=== PATIENT | male | born 1960 | race Caucasian/White ===

== ENCOUNTER → 2019-02-12 | Outpatient (CLI) | payer OTHER ==
[~2019-02-12] MED LIST: CETI10CA5 PO; ESOM20CA31 PO
== END | disposition home or self-care (01) ==
LOC: RAH 10:42
PROVIDERS: ATTEND Internal Medicine Critical Care Medicine
DX: M17.12 Unilateral primary osteoarthritis, left knee (principal)
CPT/HCPCS: 73562

== ENCOUNTER → 2019-03-06 | Outpatient (CLI) | payer OTHER | END | disposition home or self-care (01) | LOC: RAH 08:40 | PROVIDERS: ATTEND Internal Medicine Gastroenterology | DX: K44.9 Diaphragmatic hernia without obstruction or gangrene (principal); K21.9 Gastro-esophageal reflux disease without esophagitis; R11.0 Nausea | CPT/HCPCS: 74240 ==

== ENCOUNTER → 2023-03-28 | Outpatient (CLI) | payer OTHER ==
[~2023-03-28] MED LIST changes: +AMOX-426 PO; +BACL10TA PO; +DULO60CA64 PO; +FLUT1BLS11 IH; +GABA300C PO; +LACT10SO95 PO; +LEVO750T68 PO; +LOSA50TA64 PO; +MAGN240P PO; +MIRT-22 PO; +MONT-39 PO; +POLY17PO4 PO; +PRAM1TAB3 PO; +ROSU20TA73 PO; +TAMS-1 PO
== END | disposition home or self-care (01) ==
LOC: RAH 15:38
PROVIDERS: ATTEND Internal Medicine Critical Care Medicine
DX: R91.8 Other nonspecific abnormal finding of lung field (principal); J44.9 Chronic obstructive pulmonary disease, unspecified; K44.9 Diaphragmatic hernia without obstruction or gangrene; K82.8 Other specified diseases of gallbladder; M47.815 Spondylosis without myelopathy or radiculopathy, thoracolumbar region; Z98.84 Bariatric surgery status
CPT/HCPCS: 71250

== ENCOUNTER 2024-11-14 06:30 | Inpatient (IN) | payer OTHER ==
[2024-11-12 10:18] VITALS: BP 107/59; PULSE 55; RESP 17; TEMP 97.3
[2024-11-12 10:18] LABS: BASOPHILS # (AUTO) 0.02 K/uL (0.00-0.20); BASOPHILS % (AUTO) 0.3 % (0.0-5.0); EOSINOPHILS # (AUTO) 0.06 K/uL (0.00-0.70); HEMATOCRIT 44.1 % (42-54); IMMATURE GRANULOCYTE ABSOLUTE 0.03 K/uL (0-1); LYMPHOCYTES # (AUTO) 1.1 K/uL (1.0-4.8); LYMPHOCYTES % (AUTO) 17.6 % (21.0-51.0); MEAN CORPUSCULAR HEMOGLOBIN 29.9 pg (27.0-33.0); MEAN CORPUSCULAR HGB CONC 31.5 g/dL (32.0-36.0); MEAN CORPUSCULAR VOLUME 94.8 fL (79-99); MONOCYTES # (AUTO) 0.3 K/uL (0.1-1.0); NEUTROPHILS # (AUTO) 4.7 K/uL (1.8-7.7); NEUTROPHILS % (AUTO) 75.6 % (40.0-77.0); PLATELET COUNT (AUTO) 292 K/uL (130-400); RED BLOOD CELL COUNT(AUTO) 4.65 MIL/uL (4.50-6.20); WHITE BLOOD COUNT (AUTO) 6.3 K/uL (4.8-10.8)
[2024-11-12 10:29] LABS: INR 0.99 (0.85-1.15); PROTHROMBIN TIME 10.5 SEC (9.6-11.6)
[2024-11-12 10:30] LABS: PARTIAL THROMBOPLASTIN TIME 30.8 SEC (26.3-35.5)
[2024-11-12 10:38] LABS: ALBUMIN 3.5 g/dL (3.5-5.0); BILIRUBIN,TOTAL 0.4 mg/dL (0.2-1.0); CREATININE 0.6 mg/dL (0.5-1.3); POTASSIUM 4.5 mmol/L (3.5-5.1); TOTAL PROTEIN, SERUM 7.2 g/dL (6.0-8.3)
[~2024-11-14] VITALS: Ht 165.1 cm; Wt 69.0 kg
[2024-11-14] VITALS (31 sets, daily range): BP systolic 90–119; BP diastolic 35–68; PULSE 46–87; RESP 13–19; TEMP 96.5–97.8; O2SAT 19–95
[~2024-11-14 06:30] MED LIST changes: -AMOX-426 PO; -BACL10TA PO; +BISA-151 PO; +CYAN-106 SQ; -ESOM20CA31 PO; -FLUT1BLS11 IH; -LACT10SO95 PO; +LANS30CA55 PO; -LEVO750T68 PO; +LOSA100T59 PO; -LOSA50TA64 PO; -MAGN240P PO; +MAGN400T40 PO; -MIRT-22 PO; -MONT-39 PO; +MVIT PO; +ONDA-104 PO; -POLY17PO4 PO; -ROSU20TA73 PO; -TAMS-1 PO; +TAMS-55 PO; +TEMA15CA PO
[2024-11-14] MEDS: GABAPENTIN 300 MG CAPSULE ONE (07:14)
[2024-11-14] MEDS: FAMOTIDINE 20MG VIAL IV ONE (07:14)
[2024-11-14] MEDS: acetaMINOPHEN 100 ML ONE (07:14)
--- NOTE | 2024-11-14 07:14 | NUR ---
BURN ANTERIOR ABDOMEN BURN NEAR BELLY BUTTON. REDNESS AND DISCOLORATION TO THE SKIN. PATIENT STATED "THE BURN HAPPENED ABOUT 2 DAYS AGO BY LEANING OVER THE STOVE OR MY GRILL" SEIZURE PADS APPLIED TO THE STRETCHER.
--- NOTE | 2024-11-14 07:15 | NUR ---
BURN DR. TRIANA NOTIFIED OF ABDOMEN BURN.
[2024-11-14] MEDS: ceFAZolin SODIUM 2 GM VIAL ONE (07:47)
[2024-11-14] MEDS: 0.9%NACL 1000ML 1,000 ML IV ONE (07:47)
[2024-11-14] MEDS: metRONIDazole 500MG/100ML BAG 100 ML ONE ×2 (07:47)
[2024-11-14] MEDS ORDERED: FENTanyl CITRate PF 50 MCG/1 ML 2ML VIAL ONE (10:27)
[2024-11-14] MEDS ORDERED: proPOFol 10 MG/ML 20ML VIAL IV ONE (10:27)
[2024-11-14] MEDS ORDERED: rocuRONium bROMide 10MG/1ML 5ML VL ONE (10:27)
[2024-11-14] MEDS ORDERED: LIDOCAINE PF 100MG/5ML (2%) SYRINGE 5ML ONE (10:27)
[2024-11-14] MEDS ORDERED: ketaMINE 50MG/ML SYRINGE 50 MG/ML DISP.SYRIN ONE (10:28)
[2024-11-14] MEDS ORDERED: dexaMETHasone SOD PHOSPHATE 10MG/ML 1ML VIAL ONE (11:19)
[2024-11-14] MEDS ORDERED: ondanSETRON 4MG INJ ONE (11:19)
[2024-11-14] MEDS ORDERED: GLYCOPYRROLATE 0.2 MG/ML 5 ML VIAL ONE (11:29)
[2024-11-14] MEDS ORDERED: NEOSTIGMINE METHYLSULFATE 1MG/ML IV ONE (11:29)
[2024-11-14] MEDS: ceFAZolin SODIUM 2 GM VIAL IVPB ONE (11:40)
[2024-11-14] MEDS: BUPIvacaine/PF 0.25% 30ML VIAL IJ ONE (11:40)
[2024-11-14] MEDS ORDERED: ePHEDrine SULFate 50 MG/ML AMPULE ONE (11:47)
[2024-11-14] MEDS: ENOXAPARIN SODIUM 30 MG/0.3 ML SQ SCH (13:30)
[2024-11-14] MEDS ORDERED: PROCHLORPERAZINE 10MG/2ML INJ IV PRN (13:30)
[2024-11-14] MEDS ORDERED: HYDROcod/acetaMINOPHEN 7.5/325 MG 15 ML UDCUP PO PRN (13:30)
[2024-11-14] MEDS ORDERED: ondanSETRON 4MG INJ IVP PRN (13:30)
[2024-11-14] MEDS ORDERED: ketOROlac 15MG/ML VIAL (15MG/ML) IV PRN (13:30)
[2024-11-14] MEDS: LACTATED RINGERS 1000ML 1,000 ML IV SCH (13:30)
--- NOTE | 2024-11-14 13:41 | OP ---
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 Robotic assisted diagnostic laparoscopy 2. Extensive lysis of adhesions >1.5 hrs 3. Diagnostic and therapeutic EGD 4. Excisional biopsy of transverse colon mesenteric mass, circumscribed/ovoid/2-3cm ESTIMATED BLOOD LOSS: min, <30cc INDICATIONS: As above DESCRIPTION OF PROCEDURE: After standard precautions and preparations were undertaken a Veress needle and optical trocar were used to enter the abdominal cavity. All other instruments were placed under direct vision. The robotic system was docked in the standard fashion. We noted immediately upon entry into the abdominal cavity the patient has extensive and diffuse adhesions between the transverse colon and omentum and the posterior abdominal wall. Care was taken to lyse adhesions. Greater than 1-1/2 hours spent lysing adhesions and freeing up the transverse colon and other associated structures. Patient has a large permanent mesh underlay and this appeared to be the source of the patient's adhesions. During the procedure we made several attempts to pass the EGD scope unsuccessfully down into the distal Aaron limb. We continued lysing adhesions in and around the stomach and left la teral aspect of the liver in order to further elucidate the anatomy. It appears the patient has a retrocolic retro gastric Aaron limb. We are able to trace the Aaron limb as it exited the transverse colon mesentery down to the jejunal jejunostomy. We were able to trace back the biliopancreatic limb to the ligament of Treitz and the common channel down to the terminal ileum. In the area of the right lower quadrant the patient appeared to have jenni that would indicate the excision of some form of a right lower quadrant abdominal wall mass or other such finding. This did not appear to be a random cluster of hold jenni but instead a staple line in the area of the right lower quadrant. Eventually we were able to trace the Aaron limb in the retrogastric space by entering into the lesser sac. After some manipulation we are able to get the EGD scope to get through to the distal Aaron limb. We realized that the patient had several large diverticula throughout the small bowel that was causing the scope to enter into blind end pouch is. The other issue was the patient had a significant amount of stool burden in the colon all the way back to the hepatic flexure. Putting all the information together it is likely that the patient's constipation was exacerbated by his intra-abdominal adhesions. It is also likely that the patient's nausea was worsened by back pressure from the chronic constipation. It is also likely that the patient's nausea is exacerbated by food trapping within the large diverticula of the proximal Aaron limb as well as the twist and turns of the Aaron limb related to adhesions as the Aaron limb traverses the retrogastric and retrocolic space. During our operation we encountered a 2-3 cm circumscribed mass in the transverse colon mesentery. It appeared well vascularized. There was no significant associated inflammation in the area but it was concerning enough that an excisional biopsy was taken. Given the above findings the decision was made to wait final diagnosis of the mesenteric mass and consider proceeding with a reversal of the bypass of the patient's nausea does not significantly improve after adhesiolysis and improved bowel regimen. The EGD during the case was described as therapeutic because we are able to suction debris and food from several of the diverticula which should improve the patient's passage of contents down the upper GI tract. Prior to ending the case all instrument counts were verified as correct including needles and sponges. Patient tolerated the procedure well and was p repared for extubation and transferred to PACU in stable condition. BENJIE TRIANA MD Nov 14, 2024 13:41
--- NOTE | 2024-11-14 13:44 | PN ---
GENERAL SURGERY PROGRESS NOTE Date/Time Patient Seen: [ 11/14/2024 at 1:40 p.m.] Problem List: [ ] Interval History: [Postop day 0. Pain tolerable with PRN medication.] Current Medications Medications (Trade) Dose Ordered Sig/Aurora Route Start Time Stop Time Status Last Admin Dose Admin Enoxaparin Sodium (Lovenox) 30 mg Q12H SQ 11/14/24 13:30 12/14/24 13:29 UNV Famotidine (Pepcid 20mg Vial) 20 mg BID IV 11/14/24 21:00 12/14/24 20:59 UNV Lactated Ringer's 1,000 ml @ 150 mls/hr Q6H40M IV 11/14/24 13:30 12/14/24 13:29 UNV Metoclopramide HCl (regLAN 10 MG TAB) 10 mg ACHS PO 11/14/24 16:30 12/14/24 16:29 UNV Physical Examination: ABD: [Incisions clean, dry and intact, Dermabond in place Vital Signs (last 8hr) Date Time Temp Pulse Resp B/P (MAP) Pulse Ox O2 Delivery O2 Flow Rate FiO2 11/14/24 06:44 96.4 53 18 119/52 97 Room Air Laboratory: [ ] Chemistry Labs: Test 11/14/24 06:57 Range/Units Whole Blood Glucose 98 70-110 MG/DL Diagnostics / Radiology: [Copy/Paste Echos/Imaging Report here] Impression and Plan: [Plan is for discharge home the next day or two as long as patient tolerating p.o., ambulatory and pain under control. We will begin Reglan and enema until clear, because of significant intraoperative findings. Discussed with the patient and family. They understand and agree. ] ALANIS TRIANA Nov 14, 2024 13:44
[2024-11-14] MEDS: morPHINE 2 MG SYG ONE ×2 (14:08→14:24)
[2024-11-14] MEDS: metoCLOPRAmide 10 MG TABLET PO SCH (16:46)
[2024-11-14] MEDS: hydroMORPHone 0.5 MG SYG (0.5MG/0.5ML) IVP PRN (16:47)
[2024-11-14] MEDS: FAMOTIDINE 20MG VIAL IV SCH (21:14)
--- NOTE | 2024-11-14 22:40 | NUR ---
Pt. took own home medication @ this time for his Restless Leg Syndrome, Mirapex 1 Mg. P.o.; states he takes it Q HS.
[2024-11-15] VITALS: BP 96/53; PULSE 54; RESP 17; TEMP 98
[2024-11-15 04:00] VITALS: BP 99/53; PULSE 58; RESP 16; TEMP 98
[2024-11-15 08:00] VITALS: BP 120/58; PULSE 59; RESP 17; TEMP 97.8
[2024-11-15 08:24] VITALS: O2SAT 98
--- NOTE | 2024-11-15 08:29 | NUR ---
PATIENT TOOK HIS OWN HOME MEDICATIONS THIS MORNING. HE STATES HE TOOK GABAPENTIN, PRAMIPEXOLE, AND FLOMAX. PATIENT NOTIFIED THAT I WILL ASK THE ROUNDING PROVIDER TO RESUME HIS HOME MEDICATIONS.
--- NOTE | 2024-11-15 11:18 | NUR ---
DCP: HOME Pt currently lives with Thao Santiago [phone]. Pt does not report any insecurities with food, intermediate, and/or utilities. Pt states that he occasionally uses a cane to ambulate at home. Pt does not have any home health or provider services. Pt is able to complete ADLs independently. PCP is Matthew Dowling and uses [facility] in [place] for any RX needs. At [place] pt will return home and family will assist with transportation. Addendum: 11/15/24 at 1120 by MURRAY LOWRY SS Amended: Links added.
[2024-11-15 12:00] VITALS: BP 125/62; PULSE 65; RESP 18; TEMP 97.7
[2024-11-15] MEDS: GABAPENTIN 300 MG CAPSULE PO SCH (14:35)
--- NOTE | 2024-11-15 15:01 | DS ---
Discharge Summary HOSPITAL COURSE SUMMARY: [] VACUUM EVAPORATION OPERATOR(S): [] PROCEDURES: [] PROBLEM(S): [] DISCHARGE INSTRUCTIONS: [] Home Meds Reported Medications Magnesium Oxide (Magnesium) 400 Mg Magnesium Tablet, 400 MG PO HS, TAB 11/12/24 Duloxetine HCl (Duloxetine HCl) 60 Mg Capsule.dr, 60 MG PO HS, CAP 11/12/24 Lansoprazole (Lansoprazole) 30 Mg Capsule.dr, 30 MG PO DAILY, CAP 11/12/24 Ondansetron HCl (Ondansetron HCl) 4 Mg Tablet, 4 MG PO [id number], TAB 11/12/24 Multivitamins,Therapeutic (Multivitamin Tablet) 400 Mcg Tab, 1 TAB PO DAILY, TAB 11/12/24 Bisacodyl (Bisacodyl) 5 Mg Tablet.dr, 5 MG PO HS, TAB 11/12/24 Temazepam (Temazepam) 15 Mg Capsule, 15 MG PO HS, CAP 11/12/24 Cyanocobalamin (Vitamin B-12) (Vitamin B12) 1,000 Mcg Tablet, 1000 MCG SQ QMONTH, TAB 11/12/24 Losartan Potassium (Losartan Potassium) 100 Mg Tablet, 100 MG PO DAILY, TAB 11/12/24 Pramipexole Di-HCl (Mirapex) 1 Mg Tablet, 1 MG PO HS, TAB 03/29/23 Tamsulosin HCl (Flomax) 0.4 Mg Cap.er.24h, 0.4 MG PO DAILY, CAPSULE. 03/29/23 Gabapentin (Neurontin) 300 Mg Capsule, 300 MG PO TID, CAP 03/29/23 Cetirizine HCl (Zyrtec) 10 Mg Capsule, 10 MG PO DAILY, CAP 03/23/15 Discontinued Reported Medications Rosuvastatin Calcium (Rosuvastatin Calcium) 20 Mg Tablet, 20 MG PO HS, TAB 03/29/23 Polyethylene Glycol 3350 (Miralax) 17 Gram Powd.pack, 17 GM PO DAILY 03/29/23 Montelukast Sodium (Montelukast Sodium) 10 Mg Tablet, 10 MG PO DAILY, TAB 03/29/23 Mirtazapine (Mirtazapine) 15 Mg Tablet, 15 MG PO HS, TAB 03/29/23 Magnesium Oxide (Magnesium Oxide 400) 240 Mg Magnesium Powd.pack, 240 MG PO HS 10/25/23 Losartan Potassium (Losartan Potassium) 50 Mg Tablet, 50 MG PO DAILY, TAB 03/29/23 Fluticasone Propion/Salmeterol (Fluticasone-Salmeterol 100-50) 100 Mcg-50 Mcg/Dose Blst.w.dev, 1 EACH IH BID 03/29/23 Baclofen (Baclofen) 10 Mg Tablet, 10 MG PO TIDP PRN for PAIN, TAB 03/29/23 Duloxetine HCl (Duloxetine HCl) 60 Mg Capsule.dr, 60 MG PO HS, CAP 03/29/23 Esomeprazole Magnesium (Nexium) 20 Mg Capsule.dr, 20 MG PO AM, CAP 03/23/15 Discontinued Scripts Lactulose (Lactulose) 10 Gram/15 Ml (15 Ml) Solution, 10 GM PO Q8H PRN for constipation for 30 Days, #1000 ML Prov:EUGENIA MEMBRENO NP 03/30/23 Amoxicillin/Potassium Clav (Augmentin 500-125 Tablet) 500 Mg-125 Mg Tablet, 1 EACH PO BID for 5 Days, #10 TAB Prov:EUGENIA MEMBRENO NP 03/30/23 Levofloxacin (Levaquin 750Mg Tabs) 750 Mg Tablet, 750 MG PO DAILY for 5 Days, #5 TAB Prov:EUGENIA MEMBRENO NP 03/30/23 [facility] Nov 15, 2024 15:01
--- NOTE | 2024-11-15 16:53 | NUR ---
DISCHARGE PIV DC'D DISCHARGE INSTRUCTIONS GIVEN TO PATIENT DIET REVIEWED WITH PATIENT PATIENT AWARE OF FOLLOW UP APPOINTMENT ALL QUESTIONS ANSWERED PRIOR TO DISCHARGE
[2024-11-15] MEDS ORDERED: BisaCODYL 5 MG TABLET.DR PO SCH (21:00)
[2024-11-15] MEDS ORDERED: PRAMIpexole DI-HCL 0.25 MG TABLET PO SCH (21:00)
[2024-11-15] MEDS ORDERED: TEMAZepam 15 MG CAPSULE PO SCH (21:00)
[2024-11-15] MEDS ORDERED: duloXETine HCL 30 MG CAP PO SCH (21:00)
[2024-11-16] MEDS ORDERED: tamSULOsin HCL 0.4 MG CAP.ER.24H PO SCH (09:00)
[2024-11-16] MEDS ORDERED: PANTOPrazole 40 MG TAB DR PO SCH (09:00)
[2024-11-16] MEDS ORDERED: LoSARTan 100 MG TABLET PO SCH (09:00)
[2024-11-16] MEDS ORDERED: MULTIVITAMIN TABLET PO SCH (09:00)
[2024-11-16] MEDS ORDERED: ceTIRIzine HCL 5 MG TABLET PO SCH (09:00)
[2024-11-16] MEDS ORDERED: MAGNESIUM OXIDE 400 MG TABLET PO SCH (21:00)
--- NOTE | 2024-11-18 11:07 | NUR ---
Transitional Phone Call Attempted to call twice, mailbox is full, wrong number.
== END 2024-11-15 16:50 | disposition home or self-care (01) | DRG 337 ==
LOC: DAH 06:30 → DAHIP 06:31 → DAH 06:31 → 3AH 15:05
PROVIDERS: ADMIT Surgery; ATTEND Surgery
PROC: 0DJ08ZZ Inspection of Upper Intestinal Tract, Via Natural or Artificial Opening Endoscopic (ICD-10-PCS; 2024-11-14)
PROC: 8E0W4CZ Robotic Assisted Procedure of Trunk Region, Percutaneous Endoscopic Approach (ICD-10-PCS; 2024-11-14)
PROC: 0DNU4ZZ Release Omentum, Percutaneous Endoscopic Approach (ICD-10-PCS; 2024-11-14)
PROC: 0DBL8ZX Excision of Transverse Colon, Via Natural or Artificial Opening Endoscopic, Diagnostic (ICD-10-PCS; principal; 2024-11-14 11:09)
PROC: 0DNL4ZZ Release Transverse Colon, Percutaneous Endoscopic Approach (ICD-10-PCS; 2024-11-14 11:09)
DX: K31.2 Hourglass stricture and stenosis of stomach (principal); K66.0 Peritoneal adhesions (postprocedural) (postinfection); Z98.84 Bariatric surgery status; I10 Essential (primary) hypertension; E11.8 Type 2 diabetes mellitus with unspecified complications; J45.909 Unspecified asthma, uncomplicated; G40.909 Epilepsy, unspecified, not intractable, without status epilepticus; E78.5 Hyperlipidemia, unspecified
CPT/HCPCS: 36415; 43235; 80053; 82948; 85025; 85610; 85730; 86850; 86900; 86901; 97161; G0378; J1100; J1171; J1650; J2003; J2270; J2405; J2704; J2710; J3010; J3490; J7030; A4215; A4221; A4222; A4223; A4600; A4649; A4663; A6260; J0665; J0690

== ENCOUNTER 2025-04-07 12:28 | Emergency (ER) | payer OTHER ==
[~2025-04-07] VITALS: Ht 162.6 cm; Wt 62.6 kg
--- NOTE | 2025-04-07 12:35 | ERN ---
ED Note History of Present Illness Stated Complaint: ABD PAIN, GROIN PAIN Chief Complaint: Abdominal Pain Time Seen by MD: 12:30 Dictation: PATIENT IS A 64-YEAR-OLD MALE COMING IN TODAY WITH RIGHT LOWER ABDOMINAL PELVIC TENDERNESS WITH NAUSEA VOMITING ONSET YESTERDAY. HE STATES HE HAD BEEN WORKING AND FELL. HE STATES HE FELT HIS GROIN LAST NIGHT AND STATES HE FELT A HERNIA. HE STATES HE HAS A HISTORY OF GASTRIC BYPASS AND HAS HAD MULTIPLE HERNIAS IN THE PAST DUE TO VOMITING. NO FEVER NO CHILLS. Allergies: Coded Allergies: fentanyl (Unverified Allergy, Unknown, 11/12/24) Home Meds Reported Medications Magnesium Oxide (Magnesium) 400 Mg Magnesium Tablet, 400 MG PO HS, TAB 11/12/24 Duloxetine HCl (Duloxetine HCl) 60 Mg Capsule.dr, 60 MG PO HS, CAP 11/12/24 Lansoprazole (Lansoprazole) 30 Mg Capsule.dr, 30 MG PO DAILY, CAP 11/12/24 Ondansetron HCl (Ondansetron HCl) 4 Mg Tablet, 4 MG PO [id number], TAB 11/12/24 Multivitamins,Therapeutic (Multivitamin Tablet) 400 Mcg Tab, 1 TAB PO DAILY, TAB 11/12/24 Bisacodyl (Bisacodyl) 5 Mg Tablet.dr, 5 MG PO HS, TAB 11/12/24 Temazepam (Temazepam) 15 Mg Capsule, 15 MG PO HS, CAP 11/12/24 Cyanocobalamin (Vitamin B-12) (Vitamin B12) 1,000 Mcg Tablet, 1000 MCG SQ QMONTH, TAB 11/12/24 Losartan Potassium (Losartan Potassium) 100 Mg Tablet, 100 MG PO DAILY, TAB 11/12/24 Pramipexole Di-HCl (Mirapex) 1 Mg Tablet, 1 MG PO HS, TAB 03/29/23 Tamsulosin HCl (Flomax) 0.4 Mg Cap.er.24h, 0.4 MG PO DAILY, CAPSULE. 03/29/23 Gabapentin (Neurontin) 300 Mg Capsule, 300 MG PO TID, CAP 03/29/23 Cetirizine HCl (Zyrtec) 10 Mg Capsule, 10 MG PO DAILY, CAP 03/23/15 Past Medical History Past Medical History: Diabetes-Type II, Hypertension Surgical History: Bariatric Surgery Social History: Negative RN Note Reviewed/Agreed w/PFSH: Yes Review of System Dictation CONSTITUTIONAL: NEGATIVE EXCEPT FOR HPI HEAD/FACE: NEGATIVE EXCEPT FOR HPI EENT: NEGATIVE EXCEPT FOR HPI RESPIRATORY: NEGATIVE EXCEPT FOR HPI GASTROINTESTINAL/ABDOMINAL: NEGATIVE EXCEPT FOR HPI RIGHT LOWER ABDOMEN/PELVIC PAIN GENITOURINARY: NEGATIVE EXCEPT FOR HPI MUSCULOSKELETAL: NEGATIVE EXCEPT FOR HPI INTEGUMENTARY: NEGATIVE EXCEPT FOR HPI NEUROLOGICAL/PSYCH: NEGATIVE EXCEPT FOR HPI HEMATOLOGIC/LYMPHATIC: NEGATIVE EXCEPT FOR HPI ALL SYSTEMS NEGATIVE, EXCEPT NOTED ABOVE. 13 POINT REVIEW OF SYSTEMS ASSESSED AND ALL NEGATIVE EXCEPT FOR ABOVE. Initial Vital Sign VS Vital Signs Date Time Temp Pulse Resp B/P (MAP) Pulse Ox O2 Delivery O2 Flow Rate FiO2 04/07/25 12:30 97.9 63 16 112/56 99 Room Air 0 04/07/25 19:54 21 Physical Exam Dictation VITAL SIGNS REVIEWED GENERAL APPEARANCE: ALERT, ORIENTED X 3, MILD ACUTE DISTRESS, WELL DEVELOPED, NOURISHED. HEAD AND FACE: NON-TRAUMATIC. EYES: PERRL, PINK CONJUNCTIVAS, EYELID NO TRAUMA, ANTERIOR CHAMBER WITH ARCUS SENILIS. EARS: PINNAS INTACT AND NO SIGNS OF TRAUMA OR ERYTHEMA EAR CANALS CLEAR AND NO DISCHARGE TM NO ERYTHEMA NOSE: NO DISCHARGE, NO BLEEDING. OROPHARYNX: MOUTH NORMAL, TONGUE PINK, PHARYNX CLEAR,NO ERYTHEMA, TONSILS NO EXUDATES, NO ABSCESSES NOTED, MUCOUS MEMBRANE MOIST NECK: SUPPLE, NON-TENDER, NO THYROMEGALY, NO MASSES, NO JVD, NO BRUITS BREAST:DEFERRED CHEST:NO TENDERNESS, NO CREPITUS, NO PARADOXICAL MOVEMENT, NO RETRACTIONS LUNGS:CLEAR, WELL-VENTILATED, SYMMETRIC, NO RALES, NO WHEEZING, NO RHONCHI, NO STRIDOR, GOOD BREATH SOUNDS BILATERALLY HEART: REGULAR RATE, REGULAR RHYTHM, NO MURMUR, NO GALLOPS VASCULAR: NO PERIPHERAL EDEMA, ABDOMEN: SOFT, POSITIVE BOWEL SOUNDS, NONDISTENDED, NO GUARDING MILD RIGHT LOWER QUADRANT AND INGUINAL PAIN TENDERNESS. NO REDUCIBLE MASS, NO REBOUND, NO MASSES NO HEPATOMEGALY, NO SPLENOMEGALY, NO MICHAELS'S SIGN, NO HERNIAS. RECTAL: DEFERRED GENITAL: DEFERRED NEUROLOGICAL: NORMAL SPEECH, MOTOR FUNCTION INTACT, SENSORY FUNCTION INTACT MUSCULOSKELETAL: NECK NONTENDER, FULL RANGE OF MOTION, BACK NONTENDER, FULL RANGE OF MOTION, EXTREMITIES: NONTENDER, FULL RANGE OF MOTION SKIN: COLOR PINK, DRY, NO TURGOR, NO RASH, NO LACERATIONS, NO ABRASIONS, NO CONTUSIONS. LYMPHATIC: DEFERRED Results (Laboratory/Radiology) Laboratory/Radiology Laboratory Tests Test 04/07/25 12:49 04/07/25 15:13 White Blood Count 6.8 K/uL (4.8-10.8) Red Blood Count 4.30 MIL/uL (4.50-6.20) L Hemoglobin 12.9 g/dL (14.0-18.0) L Hematocrit 40.3 % (42-54) L Mean Corpuscular Volume 93.7 fL (79-99) Mean Corpuscular Hemoglobin 30.0 pg (27.0-33.0) Mean Corpuscular Hemoglobin Concent 32.0 g/dL (32.0-36.0) Red Cell Distribution Width 13.7 % (11.0-15.5) Platelet Count 366 K/uL (130-400) Mean Platelet Volume 9.1 fL (7.5-10.5) Immature Granulocyte % (Auto) 0.3 % (0-1) Neutrophils (%) (Auto) 77.2 % (40.0-77.0) H Lymphocytes (%) (Auto) 15.1 % (21.0-51.0) L Monocytes (%) (Auto) 7.0 % (3.0-13.0) Eosinophils (%) (Auto) 0.3 % (0.0-8.0) Basophils (%) (Auto) 0.1 % (0.0-5.0) Neutrophils # (Auto) 5.2 K/uL (1.8-7.7) Lymphocytes # (Auto) 1.0 K/uL (1.0-4.8) Monocytes # (Auto) 0.5 K/uL (0.1-1.0) Eosinophils # (Auto) 0.02 K/uL (0.00-0.70) Basophils # (Auto) 0.01 K/uL (0.00-0.20) Absolute Immature Granulocyte (auto 0.02 K/uL (0-1) Nucleated Red Blood Cells 0.0 % (0.0-0.19) Sodium Level 138 mmol/L (136-145) Potassium Level 4.0 mmol/L (3.5-5.1) Chloride Level 100 mmol/L (101-111) L Carbon Dioxide Level 32 mmol/L (21-32) Blood Urea Nitrogen 13 mg/dL (7-18) Creatinine 0.7 mg/dL (0.5-1.3) Glomerular Filtration Rate Calc 104 mL/min (>90) Random Glucose 124 mg/dL (70-105) H Total Calcium 8.6 mg/dL (8.5-10.1) Lipase 20 U/L (16-77) Urine Color YELLOW (YELLOW) Urine Appearance CLEAR (CLEAR) Urine pH 5.5 (5.0-8.0) Urine Specific [place] 1.031 (1.001-1.031) Urine Protein NEGATIVE mg/dL (NEGATIVE) Urine Glucose (UA) NEGATIVE mg/dL (NEGATIVE) Urine Ketones NEGATIVE mg/dL (NEGATIVE) Urine Occult Blood NEGATIVE (NEGATIVE) Urine Nitrate NEGATIVE (NEGATIVE) Urine Bilirubin NEGATIVE mg/dL (NEGATIVE) Urine Urobilinogen 4.0 mg/dL (0.2-1.0) H Urine Leukocyte Esterase NEGATIVE Lauro/uL Urine RBC 0-1 /HPF (0-1) Urine WBC 0-1 /HPF (0-1) Urine Bacteria RARE /HPF (None Seen) Urine Hyaline Casts 0-1 /LPF (0-1 /LPF) SES: Mild ground glass opacities within the right middle lobe may reflect an infectious and/or inflammatory process. LIVER: The liver is mildly enlarged, measuring approximately 18.5 cm in craniocaudal dimension. Parenchymal attenuation appears homogeneous without focal lesions. No intrahepatic biliary ductal dilatation. GALLBLADDER AND BILE DUCTS: The gallbladder is normal in size and wall thickness. No gallstones or pericholecystic fluid. No biliary ductal dilatation. PANCREAS: Normal in size, contour, and enhancement pattern. No peripancreatic inflammation or fluid collection. SPLEEN: Normal in size and homogeneous in attenuation. ADRENAL GLANDS: Normal in morphology and enhancement bilaterally. KIDNEYS, URETERS, AND BLADDER: Both kidneys are normal in size, shape, and enhancement. No renal mass, calculus, or hydronephrosis. Ureters are normal in course and caliber. The urinary bladder appears normal in wall thickness and contour. STOMACH AND BOWEL: Postoperative changes noted in the stomach, consistent with prior surgical intervention. Small hiatal hernia. Seen. The stomach and small bowel loops are normal in caliber and enhancement. No evidence of bowel wall thickening, obstruction, or pneumatosis. Mild colonic diverticulosis without diverticulitis APPENDIX: The appendix is visualized and measures 0.5 cm in diameter. No periappendiceal fat stranding, wall thickening, or fluid collection is seen. PERITONEUM: No free intraperitoneal fluid or free air identified. LYMPH NODES: No significant abdominopelvic lymphadenopathy. REPRODUCTIVE ORGANS: Visualized pelvic structures appear unremarkable. No adnexal mass or pelvic collection. VASCULATURE: Aorta and its major branches show normal opacification without aneurysm or dissection. No significant vascular stenosis. BONES: Moderate degenerative changes are noted in the thoracolumbar spine. Schmorl???s nodes are seen at D12, L1, and L2 levels. No acute osseous abnormality or destructive lesion identified.IMPRESSION No acute intra-abdominal or pelvic abnormality detected. Mild colonic diverticulosis without diverticulitis. /[facility] Labs Reviewed?: Yes ED Course ED Course Orders Procedure Category Date Status Time Cbc With Differential LAB 04/07/25 Complete 12: Urinalysis Profile LAB 04/07/25 Complete 12:33 Ct Abdomen/Pelvis CT 04/07/25 Resulted W/Contrast 12:33 0.9%Nacl 1000ml (Ns PHA 04/07/25 Complete 1000ml) 13:00 Ketorolac PHA 04/07/25 Complete Tromethamine 15mg/Ml 13:00 Lipase LAB 04/07/25 Complete 12:33 Basic Metabolic Panel LAB 04/07/25 Complete 12:33 Iohexol (Omnipaque) PHA 04/07/25 Complete 18:01 Ketorolac PHA 04/07/25 Complete Tromethamine 15mg/Ml 19:17 0.9%Nacl 1000ml (Ns PHA 04/07/25 Complete 1000ml) 19:17 Current Medications Medications (Trade) Dose Ordered Sig/Aurora Route PRN Reason Start Time Stop Time Status Last Admin Dose Admin Iohexol (Omnipaque) 35,000 mg STK-MED ONCE IV 04/07/25 18:01 04/07/25 18:02 DC Ketorolac Tromethamine (toRADol) 15 mg ONCE ONCE IV 04/07/25 13:00 04/07/25 13:01 DC 04/07/25 19:25 Ketorolac Tromethamine (toRADol) 15 mg STK-MED ONCE .ROUTE 04/07/25 19:17 04/07/25 19:17 DC Sodium Chloride 1,000 ml @ 0 mls/hr ONCE ONCE IV 04/07/25 13:00 04/07/25 13:01 DC 04/07/25 19:25 Sodium Chloride 1,000 ml @ As Directed STK-MED ONCE IV 04/07/25 19:17 04/07/25 19:17 DC Vital Signs Date Time Temp Pulse Resp B/P (MAP) Pulse Ox O2 Delivery O2 Flow Rate FiO2 04/07/25 19:54 96.8 54 16 155/70 98 Room Air* 0 21 04/07/25 12:30 97.9 63 16 112/56 99 Room Air 0 1908/CALL [facility] AND SPOKE WITH TAMARA. SHE SAID SHE WOULD WORK TO HAVE THE CT RESULTS EXPEDITED. Medical Decision Making MDM MDM: DIFFERENTIAL DIAGNOSIS: DIVERTICULITIS/APPENDICITIS/HERNIA/ELECTROLYTE IMBALANCE/DEHYDRATION/UTI/PYELONEPHRITIS RATIONALE: TESTS CONSIDERED AND ORDERED SECONDARY TO SHARED DECISION MAKING INC LUDE: LABS/RADIOLOGY PREVIOUS OUTSIDE RECORDS REVIEWED: OLD ER VISITS. RISK OF COMPLICATION AND/OR MORBIDITY OR MORTALITY OF PATIENT MANAGEMENT: NONE MEDICATIONS-PER MEDICATION RECONCILIATION NEED FOR HOSPITALIZATION: PATIENT DOES NOT MEET CRITERIA FOR HOSPITALIZATION. NONE NEED FOR EMERGENCY MAJOR/MINOR SURGERY: NO THERE ARE NO SOCIAL CONCERNS WITH THIS PATIENT. PRESCRIPTION DRUG MANAGEMENT IBUPROFEN PRESCRIPTIONS WILL INCLUDE SYMPTOMATIC CARE PATIENT'S PRIOR EXTERNAL MEDICAL RECORDS FROM OTHER ER VISITS WERE REVIEWED BY ME INDICATED. PRIOR TESTING AND RESULTS FROM PREVIOUS VISITS WERE REVIEWED. PRIOR TESTS WERE TAKEN INTO ACCOUNT WITH MEDICAL DECISION MAKING AND RESOURCE UTILIZATION, INDEPENDENT HISTORIAN/HISTORIANS WERE USED TO OBTAIN COMPLETE M EDICAL HISTORY. I INDEPENDENTLY INTERPRETED THE TEST THAT WERE PERFORMED, RESULTS WERE REVIEWED BY ME AND CONSIDERED FINDINGS ON RADIOLOGY IF ORDERED. MEDICAL MANAGEMENT AND EXAMINATION INTERPRETATION DISCUSSIONS WERE HAD BY ME WITH OTHER QUALIFIED HEALTHCARE PROFESSIONALS INDICATED FOR THE PATIENT'S CARE. DX & DISP Disposition: Discharge Departure Impression: Primary Impression: Diverticulosis Additional Impressions: DJD (degenerative joint disease), lumbar, DJD (degenerative joint disease), thoracic, Hypochloremia Condition: Stable Scripts Ibuprofen (Ibuprofen) 600 Mg Tablet 600 MG PO Q6H PRN for PAIN, #30 TAB Prov: TORRES TOLLIVER NARROW GAUGE ENGINEER 04/07/25 Additional Instructions: FOLLOW-UP WITH PRIMARY CARE PROVIDER IN 1 TO 2 DAYS. TAKE MEDICATIONS DIRECTED HERE IN THE EMERGENCY ROOM. OKAY TO CONTINUE HOME MEDICATIONS UNLESS OTHERWISE DISCUSSED DURING YOUR VISIT IN THE EMERGENCY ROOM TODAY. RETURN TO YOUR NEAREST EMERGENCY ROOM IF SYMPTOMS WORSEN OR IF THERE IS NO IMPROVEMENT. CALL 911 IF YOU NEED IMMEDIATE ASSISTANCE. TAKE TYLENOL OR MOTRIN [id number] NEEDED AND IF NO CONTRAINDICATIONS ARE PRESENT. INCREASE ORAL HYDRATION. A WOUND CULTURE OR URINE CULTURE WAS ORDERED HERE IN THE EMERGENCY ROOM DEPARTMENT PLEASE FOLLOW-UP WITH PRIMARY CARE PROVIDER AND ADVISE THEM TO GET REPEAT PORTS FROM OUR FACILITY. IF YOU HAD ANY LLOYD WRAP/SPLINTS THAT WERE APPLIED HERE, PLEASE DO NOT REMOVE THEM UNTIL YOU SEE YOUR PRIMARY CARE OR SPECIALTY. TAKE IBUPROFEN NEEDED FOR PAIN WITH FOOD. INCREASE YOUR FIBER INTAKE. SEE YOUR PRIMARY CARE DOCTOR FOR FOLLOW UP IN 1-2 DAYS. Referrals: MARTY MAYER MD (PCP) Time of Disposition: 20:04 I have reviewed the case, and I agree with, Diagnosis and Plan TORRES TOLLIVER NARROW GAUGE ENGINEER Apr 07, 2025 12:35
[2025-04-07 12:58] LABS: IMMATURE GRANULOCYTE ABSOLUTE 0.02 K/uL (0-1); NUCLEATED RED BLOOD CELLS 0.0 % (0.0-0.19); PLATELET COUNT (AUTO) 366 K/uL (130-400); RED BLOOD CELL COUNT(AUTO) 4.30 MIL/uL (4.50-6.20); RED CELL DISTRIBUTION WIDTH 13.7 % (11.0-15.5); WHITE BLOOD COUNT (AUTO) 6.8 K/uL (4.8-10.8)
[2025-04-07 13:07] LABS: CREATININE 0.7 mg/dL (0.5-1.3); GLOMERULAR FILTR. RATE CALC 104.0 mL/min (>90); GLUCOSE,RANDOM 124.0 mg/dL (70-105); SODIUM SERUM 138.0 mmol/L (136-145); UREA NITROGEN, BLOOD 13.0 mg/dL (7-18)
[2025-04-07 15:24] LABS: APPEARANCE,URINE CLEAR (CLEAR); GLUCOSE, URINE (UA) NEGATIVE (NEGATIVE); LEUKOCYTE ESTERASE ,URINE NEGATIVE Leu/uL (NEGATIVE); NITRATE,URINE NEGATIVE (NEGATIVE); OCCULT BLOOD,URINE NEGATIVE (NEGATIVE)
[2025-04-07 15:25] LABS: ADD UA MICROSCOPIC YES
[2025-04-07 15:31] LABS: HYALINE CASTS, URINE 0-1 /LPF (0-1 /LPF)
[2025-04-07] MEDS ORDERED: IOHEXOL 350 MG/ML 100ML INFUS..BTL IV ONE (18:01)
[2025-04-07] MEDS: 0.9%NACL 1000ML 1,000 ML IV ONE ×2 (19:25→19:26)
--- NOTE | 2025-04-07 19:46 | HMCIMG ---
EXAM: CT Abdomen and Pelvis with IV contrast CLINICAL HISTORY: RIGHT LOWER ABDOMINAL AND PELVIC TENDERNESS. HISTORY OF HERNIA TECHNIQUE: Axial computed tomography images of the abdomen and pelvis with intravenous contrast. CONTRAST: Standard dose of IV contrast. COMPARISON: None provided. FINDINGS: LUNG BASES: Mild ground glass opacities within the right middle lobe may reflect an infectious and/or inflammatory process. LIVER: The liver is mildly enlarged, measuring approximately 18.5 cm in craniocaudal dimension. Parenchymal attenuation appears homogeneous without focal lesions. No intrahepatic biliary ductal dilatation. GALLBLADDER AND BILE DUCTS: The gallbladder is normal in size and wall thickness. No gallstones or pericholecystic fluid. No biliary ductal dilatation. PANCREAS: Normal in size, contour, and enhancement pattern. No peripancreatic inflammation or fluid collection. SPLEEN: Normal in size and homogeneous in attenuation. ADRENAL GLANDS: Normal in morphology and enhancement bilaterally. KIDNEYS, URETERS, AND BLADDER: Both kidneys are normal in size, shape, and enhancement. No renal mass, calculus, or hydronephrosis. Ureters are normal in course and caliber. The urinary bladder appears normal in wall thickness and contour. STOMACH AND BOWEL: Postoperative changes noted in the stomach, consistent with prior surgical intervention. Small hiatal hernia. Seen. The stomach and small bowel loops are normal in caliber and enhancement. No evidence of bowel wall thickening, obstruction, or pneumatosis. Mild colonic diverticulosis without diverticulitis APPENDIX: The appendix is visualized and measures 0.5 cm in diameter. No periappendiceal fat stranding, wall thickening, or fluid collection is seen. PERITONEUM: No free intraperitoneal fluid or free air identified. LYMPH NODES: No significant abdominopelvic lymphadenopathy. REPRODUCTIVE ORGANS: Visualized pelvic structures appear unremarkable. No adnexal mass or pelvic collection. VASCULATURE: Aorta and its major branches show normal opacification without aneurysm or dissection. No significant vascular stenosis. BONES: Moderate degenerative changes are noted in the thoracolumbar spine. Schmorl???s nodes are seen at D12, L1, and L2 levels. No acute osseous abnormality or destructive lesion identified.IMPRESSION No acute intra-abdominal or pelvic abnormality detected. Mild colonic diverticulosis without diverticulitis. /[place]
[2025-04-07 19:54] VITALS: BP 155/70; PULSE 54; RESP 16; TEMP 96.8; O2SAT 98
[2025-04-07] MEDS ORDERED: IBUP-1492 PO (20:04)
== END 2025-04-07 20:20 | disposition home or self-care (01) ==
LOC: EDH 12:28
DX: K57.30 Diverticulosis of large intestine without perforation or abscess without bleeding (principal); M47.816 Spondylosis without myelopathy or radiculopathy, lumbar region; M47.814 Spondylosis without myelopathy or radiculopathy, thoracic region; E87.8 Other disorders of electrolyte and fluid balance, not elsewhere classified; E11.9 Type 2 diabetes mellitus without complications; I10 Essential (primary) hypertension; Z79.899 Other long term (current) drug therapy; Z88.5 Allergy status to narcotic agent
CPT/HCPCS: 99285; 74177; 96374; 96361; 80048; 83690; 85025; 81001; 36415; J1885; J7030; Q9967